=== PATIENT | female | born 1960 | race Caucasian/White ===

== ENCOUNTER → 2018-10-05 | Outpatient (CLI) | payer BC ==
[~2018-10-05] MED LIST: ASPIRIN E.C. 8181 MG PO; BUSPAR DIVIDOSE15 MG PO; CARDI-OMEGA1000 MG PO; CYMBALTA 60MG60 MG PO; DAILY VITAMIN1 TAB PO; EPA1000 MG PO; ESKALITH C450 MG/TAB PO; HUMALOG PEN100 U/ML SC; HUMULIN R U-500 U/ML SC; INDERAL 20MG20 MG PO; KLONOPIN 0.5MG0.5 MG PO; KLONOPIN 1MG1 MG PO; LASIX 20MG TABL20 MG PO; LEVEMIR FLEXPEN SC; LIPITOR 10MG10 MG PO; LITHIUM 30300 MG/CAP PO; LITHIUM CARBON300 MG PO; MICARDIS HCT 121 TA1 PO; MICARDIS HCT 121 TAB PO; RISPERDAL 1M1 MG/TAB PO; RISPERDAL2 MG PO; SYNTHROID 0.0.025 MG PO; TRADJENTA5 MG PO; TRIGLIDE160 M1 PO; ZOLOFT 100MG100 MG PO
== END ==
LOC: BHSO 10:52
DX: F33.41 Major depressive disorder, recurrent, in partial remission (principal)

== ENCOUNTER → 2018-11-01 | Outpatient (CLI) | payer BC | LOC: BHSO 14:23 | DX: F33.41 Major depressive disorder, recurrent, in partial remission (principal) | CPT/HCPCS: G0463 ==

== ENCOUNTER → 2019-03-14 | Outpatient (CLI) | payer BC | LOC: BHSO 09:47 | DX: F33.42 Major depressive disorder, recurrent, in full remission (principal) | CPT/HCPCS: G0463 ==

== ENCOUNTER → 2020-03-12 | Outpatient (CLI) | payer BC | LOC: BHSO 13:56 | DX: F33.41 Major depressive disorder, recurrent, in partial remission (principal) | CPT/HCPCS: G0463 ==